=== PATIENT | male | born 1980 | race Caucasian/White ===

== ENCOUNTER → 2016-05-02 | Outpatient (CLI) | payer MEDICAID ==
[~2016-05-02] MED LIST: ALBUTEROL0.63 MG/3 IH; AMLODIPINE-BEN1 EAC4 PO; BIOTIN10000 MC1 PO; CARDIZEM CD240 M1 PO; COLLAGENASE PO; COMBIVENT RESPIM4 GM IH; DELTASONE DPS10 MG PO; DESYREL DPS100 MG PO; DESYREL DPS150 MG PO; DUONEB DPS3 ML IH; GLUCOPHAGE-DPS500 MG PO; HYDROCODONE 5MG/5 MG PO; KLONOPIN DPS1 MG PO; LEVAQUIN DPS500 MG PO; LEVAQUIN DPS750 MG PO; LIPITOR DPS20 MG PO; LISINOPRIL20 MG PO; LOTRIMIN DPS15 GM TP; MIRALAX PACKET17 GM PO; MOTRIN-DPS600 MG PO; PHENERGAN W/COD30 ML PO; PROTONIX40 MG PO; SEROQUEL DPS100 MG PO; TENORMIN DPS50 MG PO; TYLENOL DPS325 MG PO; ULTRAM DPS50 MG PO; WELLBUTRIN XL150 MG PO; ZANAFLEX4 MG PO; ZOLOFT DPS100 MG PO
== END | disposition home or self-care (01) ==
LOC: RESC 12:29
DX: R06.02 Shortness of breath (principal); R94.2 Abnormal results of pulmonary function studies

== ENCOUNTER → 2016-05-02 | Outpatient (CLI) | payer MEDICAID | END | disposition home or self-care (01) | LOC: RAD.S 08:06 | DX: N20.0 Calculus of kidney (principal) ==

== ENCOUNTER → 2016-05-08 | Outpatient (CLI) | payer MEDICAID | END | disposition home or self-care (01) | LOC: THER.S 15:48 | DX: E86.0 Dehydration (principal); R11.2 Nausea with vomiting, unspecified; J40 Bronchitis, not specified as acute or chronic ==

== ENCOUNTER 2016-05-15 17:04 | Emergency (ER) | payer MEDICAID ==
[~2016-05-15 17:04] MED LIST changes: -DESYREL DPS100 MG PO; -LIPITOR DPS20 MG PO; -SEROQUEL DPS100 MG PO
--- NOTE | 2016-05-16 15:31 | NUR ---
Pt triggered as a high ED user. Called and spoke with . states pt is at Dr. Guerrero's office right now which is he PCP. states they have transportation and able to get discharge medications. Deny any needs.
--- NOTE | 2016-05-20 08:22 | ER ---
ADMIT: 05/15/2016 RM/LOC: ER [facility] MR#: [id number] [address] [address] [address]RAFT [address] [place] [address] Emergency Room Report SEX: M AGE: 35 : 1980 DATE: 05/15/2016 A 35-year-old male who accompanied his to the ER. She was initially seen and then he felt that he should be seen as well after he was sitting in her room for a while. His complaints were shortness of breath and abdominal pain. See T-sheet for remainder of history and physical. ABGs were 7.429, pCO2 of 37, PO2 of 80, 96%. Chest x-ray was within normal limits. CBC showed white count of 12, normal differential. Electrolytes were within normal parameters. The patient was discharged with a diagnosis of shortness of breath. He was instructed to follow up with his doctor this week. Gabriele López MD/ gita JOB #: [id number] CC: Roscoe Flores MD, Attending Physician Brad Guerrero MD, Family Physician
[2016-10-04] MEDS ORDERED: SEROQUEL DPS100 MG PO (14:01)
[2016-10-04] MEDS ORDERED: LIPITOR DPS20 MG PO (14:04)
[2016-10-04] MEDS ORDERED: DESYREL DPS100 MG PO (14:05)
== END 2016-05-15 19:00 | disposition home or self-care (01) ==
LOC: ER 17:04
DX: R06.02 Shortness of breath (principal); I10 Essential (primary) hypertension; Z87.442 Personal history of urinary calculi; Z79.899 Other long term (current) drug therapy

== ENCOUNTER 2016-06-05 15:14 | Emergency (ER) | payer MEDICAID ==
--- NOTE | 2016-06-06 14:31 | NUR ---
Pt triggered as a high ED user. Pt states he has a call into Dr. Guerrero's office to schedule a doctors appt. Pt asked for a gas voucher to get to his doctors appt. SWS requested pt call back once his appt has been scheduled.
--- NOTE | 2016-06-07 11:00 | NUR ---
JOSE LUIS gave pt a project care voucher for $10.00 to Kimberly to get to his doctor's appt at [facility] on .
--- NOTE | 2016-06-11 21:33 | ER ---
ADMIT: 06/05/2016 RM/LOC: ER [facility] MR#: [id number] 2620 [facility] [address] [place], [place] [address] [address] KRAFT [facility] [address] [place] [address] Emergency Room Report SEX: M AGE: 35 : 1980 DATE: 06/05/2016 ADDENDUM: CHIEF COMPLAINT: Chest pain. HISTORY OF PRESENT ILLNESS: This is a 35-year-old who woke up this morning, said as soon as he stood up and he started walking, he had chest pain. He does not remember doing anything to hurt to his chest. He did not lift anything heavy, but he said he could have slept wrong. Chest pain does not worsen with exertion, but does not get any better. He says it has just been there constant since 8:00 or 9:00 this morning. When asked about shortness of breath, he said his shortness of breath is the same as it always is. No better, no worse. Cardiac routine was ordered. EKG showed sinus tach at a rate of 106. Cardiac enzymes were negative with a troponin of less than 0.015. His pain has been more than 6 hours. On examination, he is tender to the chest wall, it hurts with full range of motion of the left shoulder. I told him at this time, I think it is more musculoskeletal related. His cardiac workup is negative. I told him that he could have some coronary artery issues, but at this time, I do not think he is having acute MD. He does see Dr. Uribe for some tachycardia. I told him to call him and follow up with him this week to recheck everything. I did give him nitroglycerin here in the emergency room, this did not relieve his pain at all. In fact, he said it may have made it a little bit worse. CLINICAL IMPRESSION: Atypical chest pain with chest wall pain. PLAN: I told him to return to the ER if anything worsens. ANJALI Mccord / Alfonso Noonan MD / gita JOB #: [id number] CC: Alfonso Noonan MD, Attending Physician Brad Guerrero MD, Family Physician
[2016-10-04] MEDS ORDERED: SEROQUEL DPS100 MG PO (14:01)
[2016-10-04] MEDS ORDERED: LIPITOR DPS20 MG PO (14:04)
[2016-10-04] MEDS ORDERED: DESYREL DPS100 MG PO (14:05)
== END 2016-06-05 17:45 | disposition home or self-care (01) ==
LOC: ER 15:14
DX: R07.89 Other chest pain (principal); I10 Essential (primary) hypertension; Z79.899 Other long term (current) drug therapy

== ENCOUNTER → 2016-06-12 | Outpatient (CLI) | payer MEDICAID ==
[~2016-06-12] MED LIST changes: +DESYREL DPS100 MG PO; +LIPITOR DPS20 MG PO; +SEROQUEL DPS100 MG PO
== END | disposition home or self-care (01) ==
LOC: RAD.S 15:15 → PTH.S 15:15 → RAD.S 15:27
DX: R06.00 Dyspnea, unspecified (principal); R05 Cough

== ENCOUNTER 2016-09-27 13:00 | Inpatient (IN) | payer MEDICAID ==
[~2016-09-27] VITALS: Ht 167.6 cm; Wt 134.9 kg
--- NOTE | ~2016-09-27 | DS ---
ADMIT: 09/27/2016 RM/LOC: 632 [facility] MR#: [id number] 2620 [facility] [address] [place], [place] [address] ABDIR[address] KRAFT [facility] [address] [place], [place] [address] Discharge Summary SEX: M AGE: 35 : 1980 ADMISSION DATE: 09/27/2016 DISCHARGE DATE: 10/03/2016 FINAL DIAGNOSES: 1. Acute renal failure secondary to dehydration. 2. Dehydration. 3. Acute gastroenteritis. 4. Obesity. 5. Diabetes mellitus, type 2. 6. Hypertension. 7. Chronic bronchitis. HISTORY OF PRESENT ILLNESS: This is a 35-year-old male, who presented to the emergency room with complaints of nausea, vomiting, diarrhea, unable to keep fluids down, has not ate or drank very much. Workup in the ER revealed that he had a creatinine of 5.6, therefore, he is being admitted for further workup and stabilization. HOSPITAL COURSE: He was admitted on 09/27/2016, given 2 L of IV normal saline, Zofran for nausea. He subsequently had no more vomiting. He was placed on a clear liquid diet. We did hold his diabetes medication. Enoxaparin we used for DVT prophylaxis. DuoNeb treatments were ordered. On 09/28 he had seven watery stools through the night but no more emesis. We advanced him to a bland ADA diet. We did order stool study for C diff, culture and sensitivity, Giardia antigen. Sliding scale insulin was used for tight blood sugar control. His creatinine slowly improved, and then on the evening of 09/28 he had severe right lower quadrant abdominal pain rating it a 9/10. Was given IV Dilaudid. A CT scan of the abdomen and pelvis was ordered. On 09/29 he had an okay night except for the pain, but it had let up. We changed his Dilaudid to q.4-6 hours p.r.n. His magnesium was a little bit low so we did replace this IV as well. His CT scan did reveal bilateral nephrolithiasis but nothing that should be contributing to the pain. On 09/30, he was afebrile. His creatinine did improve down to 1.4, he was given Phenergan and Reglan for nausea. He had one loose stool through the night. On 10/01 we did Hep-Lock his IV, encouraged ambulation. On 10/02 he felt more dehydrated, felt like he was not drinking enough. We discontinued his Dilaudid, and he was placed on Lortab. We restarted his IV fluids. On 10/03 he was feeling better. No more vomiting. He did have a hard stool on 10/02. Therefore, he was felt stable for discharge. DISCHARGE INSTRUCTIONS: 1. Desyrel 150 mg at bedtime. 2. Klonopin 1 mg t.i.d. 3. Lipitor 20 mg at bedtime. 4. Protonix 40 mg daily. ADMIT: 09/27/2016 RM/LOC: 632 [facility] MR#: [id number] [address] [address] [place] [address] Discharge Summary SEX: M AGE: 35 : 1980 5. Wellbutrin XL 150 mg daily. 6. Zoloft 100 mg at bedtime. 7. DuoNeb treatment b.i.d. 8. Seroquel 100 mg t.i.d. p.r.n. 9. Tylenol 325 mg 2 tabs q.4 hours p.r.n. 10.DuoNeb treatment q.4 hours p.r.n. 11.Atorvastatin 20 mg at bedtime. 12.Metformin 1000 mg b.i.d. 13.Lisinopril 20 mg daily. Follow up with Dr. Guerrero in 1 week. Hickory diet, ADA. Follow up sooner if needed. Brad Guerrero MD/ kristy JOB #: [id number] CC: Brad Guerrero MD, Attending Physician Brad Guerrero MD, Family Physician
[~2016-09-27 13:00] MED LIST changes: -DESYREL DPS100 MG PO; -LIPITOR DPS20 MG PO; -SEROQUEL DPS100 MG PO
--- NOTE | 2016-10-04 08:08 | HP ---
ADMIT: 09/27/2016 RM/LOC: 632 [facility] MR#: [id number] 2620 [facility] [address] [place], [place] [address] [address]RA[address] [place] [address] History and Physical SEX: M AGE: 35 : 1980 DATE OF SERVICE: 09/27/2016 CHIEF COMPLAINT: Vomiting and diarrhea. HISTORY OF PRESENT ILLNESS: This is a 35-year-old male who presented to the emergency room today complaining that he had vomiting and diarrhea for about 3 days. He said he was having just watery stools 10 to 12 times a day and also vomiting 2 to 3 times a day, but by the time he came to the hospital, he said he was only bringing up a little bit of bile. He felt weak and has some back crampiness. He denies fever. Denies that anyone else is sick, and he has had no travel or sick contacts. In the emergency room, he appeared dehydrated. His laboratory shows elevated creatinine of 5.6. He is admitted for dehydration, gastroenteritis, and acute renal failure. PAST MEDICAL HISTORY: Significant for hypertension; obstructive sleep apnea; diabetes type 2; depression; chronic bronchitis, on chronic oxygen; gastroesophageal reflux; and history of kidney stones. Old records state he has hepatitis C positive status. PAST SURGICAL HISTORY: Include subdural hematoma evacuation in 1997. He has also had previous cholecystectomy. MEDICATIONS: 1. Quetiapine 100 mg t.i.d. 2. Diltiazem 480 mg daily. 3. Clonazepam 1 mg t.i.d. 4. Bupropion 150 mg daily. 5. Pantoprazole 40 mg daily. 6. Lisinopril/HCTZ 20/12.5 mg daily. 7. Metformin 1000 mg b.i.d. 8. Atorvastatin 20 mg daily at bedtime. 9. Trazodone 150 mg daily at bedtime. 10.Sertraline 100 mg daily at bedtime. ALLERGIES: NONE. FAMILY HISTORY: Father had colon cancer, prostate cancer, and hypertension. Mother had breast cancer. SOCIAL HISTORY: He is not currently employed. He is . Denies alcohol use. REVIEW OF SYSTEMS: CONSTITUTIONAL: He said he feels very weak with some chills. He does not check his temperature. ENT: Complains that his mouth feels dry. Denies any trouble swallowing. He is really not having heartburn symptoms, but he is very nauseated and that causes some sore throat symptoms. CARDIOPULMONARY: He has to wear his oxygen at all times. He does not use a CPAP for his sleep apnea. He said he really has not felt any more short of ADMIT: 09/27/2016 RM/LOC: 632 [facility] MR#: [id number] [address] [address] [place] [address] History and Physical SEX: M AGE: 35 : 1980 breath than usual. GASTROINTESTINAL: Positive for vomiting and diarrhea. No hematemesis or melena. GENITOURINARY: He thinks that he has had a less urine output in the last 24 hours. He really could not quantify that, but said "all I was doing was having liquid stools all day." ENDOCRINE: He has diabetes. He said his sugars have been under good control recently with numbers in the 100 to 130 at most checks. PSYCHIATRIC: Positive for chronic depression and anxiety, and he is treated, and denies any new concerns in that regard. PHYSICAL EXAMINATION: VITAL SIGNS: Blood pressure 100/45. In the emergency room, he was running in the 120s to 130s systolically. Oxygenation is 100% on his usual 2 L. His temperature is 99.2. GENERAL: He is lying in bed. He is able to give a good history. He is alert and oriented. He is able to lift and move arms. NECK: No stiffness. HEENT: His lips look little bit dry. NEUROLOGIC: Cranial nerves II through XII are intact. HEART: Regular. LUNGS: Diminished, but clear. ABDOMEN: His belly is obese. Bowel sounds are present throughout. He has some mild tenderness, but no guarding. EXTREMITIES: No edema. INTEGUMENT: He has multiple tattoos. No evidence of any skin infection. LABORATORY AND X-RAY DATA: Sodium 134, potassium 4.5, chloride 100, and CO2 is 23. His BUN is 41 with a creatinine of 5.6. Glucose was 100. Calcium 9.2. Lipase is normal at 139. Liver enzymes show total protein of 8.8 and albumin 5.2, which is elevated. AST and ALT are normal. His corrected calcium was 8.2. White count 11.5, hemoglobin 17.5, and platelet count 222. Urinalysis shows no glucose, no ketones. There was 1+ protein in the urine. It was negative for bilirubin, nitrite, and leukocytes. He had some hyaline casts and granular casts in the urine. ASSESSMENT: 1. Acute kidney failure. 2. Gastroenteritis with dehydration leading to the kidney failure. 3. Chronic hypertension. 4. Chronic diabetes type 2. 5. Chronic depression. 6. Chronic obstructive sleep apnea. PLAN: The patient is going to be rehydrated. We have already given him 2 L of fluid. His creatinine did come down from 5.6 to 5.2 after those 2 L. Electrolytes remained stable. I will continue rehydration. I will allow him to have clear liquids, and we will treat him for his nausea. So far, he has ADMIT: 09/27/2016 RM/LOC: 632 [facility] MR#: [id number] [address] [place] [id number] [place] [address] History and Physical SEX: M AGE: 35 : 1980 had no further vomiting since he arrived in the emergency room, and he has had no stools. If he does have persistent stools, then we will need to consider stool studies, but at this point, it appears that this is a viral illness. He has had no fever, no melena or hematochezia. He has no recent antibiotic use. I stopped his nephrotoxic medications including his CHRISTEL inhibitor, hydrochlorothiazide, meloxicam, and metformin. He complains of back ache and body aches. He can have Tylenol and/or Ultram just for that. Finally, we will check his blood sugars routinely, but at this point, he has no elevated sugars, so I will hold off on ordering insulin unless he starts to spike up higher once he starts eating. Carolyn Alarcon MD/ gita JOB #: [id number] CC: Brad Guerrero, Attending Physician Brad Guerrero, Family Physician
[2016-10-04] MEDS ORDERED: SEROQUEL DPS100 MG PO (14:01)
[2016-10-04] MEDS ORDERED: LIPITOR DPS20 MG PO (14:04)
[2016-10-04] MEDS ORDERED: DESYREL DPS100 MG PO (14:05)
--- NOTE | 2016-10-08 14:13 | ER ---
ADMIT: 09/27/2016 RM/LOC: 632 [facility] MR#: [id number] 26[address] [facility] [address] [place], [place] [address] [address] [place], [place] [address] [place] [address] Emergency Room Report SEX: M AGE: 35 : 1980 DATE: 09/27/2016 ADDENDUM: This patient comes to the ER because he has had vomiting and diarrhea for the last 3 days. He has not kept any fluids down. Today, he started having numbness in his hands and felt like it was more prominent on the left side than on the right side. He also feels weak and dizzy. On physical exam, his oral mucosa is dry, but his abdomen is soft, nontender to palpation. His white count was 11.5, creatinine 5.1, BUN 41. I did look up his past creatinine and in May 2016 it was 1.2. He does not have any history of having renal failure. IV of normal saline was started. He was given a liter of bolus with Zofran 4 mg IV. DIAGNOSES: 1. Vomiting. 2. Diarrhea. 3. Dehydration. 4. Elevated creatinine. I did consult with Dr. Flores concerning the treatment of this patient. I then spoke with Dr. Alarcon who is on-call for Dr. Guerrero, and this patient will be admitted by her. Please refer to her dictation for further treatment. ANJALI Nicolas / Roscoe Flores MD / modl JOB #: [id number] CC: Brad Guerrero MD, Attending Physician Brad Guerrero MD, Family Physician
== END 2016-10-03 13:00 | disposition home or self-care (01) | DRG 683 ==
LOC: ER 13:00 → 6PED 16:00
PROVIDERS: ADMIT Family Medicine
DX: N17.9 Acute kidney failure, unspecified (principal); Z68.42 Body mass index [BMI] 45.0-49.9, adult; Z99.81 Dependence on supplemental oxygen; E86.0 Dehydration; K52.9 Noninfective gastroenteritis and colitis, unspecified; E66.9 Obesity, unspecified; J42 Unspecified chronic bronchitis; I10 Essential (primary) hypertension; G47.33 Obstructive sleep apnea (adult) (pediatric); E11.9 Type 2 diabetes mellitus without complications; N20.0 Calculus of kidney; F32.9 Major depressive disorder, single episode, unspecified; K21.9 Gastro-esophageal reflux disease without esophagitis; B19.20 Unspecified viral hepatitis C without hepatic coma; Z79.84 Long term (current) use of oral hypoglycemic drugs

== ENCOUNTER → 2016-11-07 | Outpatient (CLI) | payer MEDICAID ==
[~2016-11-07] MED LIST changes: +DESYREL DPS100 MG PO; +LIPITOR DPS20 MG PO; +SEROQUEL DPS100 MG PO
== END | disposition home or self-care (01) ==
LOC: THER.SSS 15:04
DX: E86.0 Dehydration (principal); R11.2 Nausea with vomiting, unspecified; R19.7 Diarrhea, unspecified